=== PATIENT | female | born 2000 | race Caucasian/White ===

== ENCOUNTER 2020-01-17 07:47 | Emergency (ER) | payer OTHER ==
[~2020-01-17] VITALS: Ht 165.1 cm; Wt 59.0 kg
[2020-01-17] MEDS ORDERED: NOHOMEMEDICATIONS (08:08)
[2020-01-17 08:38] LABS: URINE BILIRUBIN NEGATIVE (Negative); URINE BLOOD NEGATIVE (Negative); URINE CLARITY SL CLOUDY; URINE COLOR YELLOW; URINE GLUCOSE-RANDOM* NEGATIVE (Negative); URINE KETONES NEGATIVE (Negative); URINE LEUKOCYTES-REFLEX NEGATIVE (Negative); URINE NITRITE-REFLEX NEGATIVE (Negative); URINE PROTEIN (DIPSTICK) NEGATIVE (Negative); URINE SPECIFIC GRAVITY >= 1.030 (1.005-1.035); URINE UROBILINOGEN 0.2 E.U./dl (0.2-1.0)
[2020-01-17 08:58] LABS: ABSOLUTE NEUTROPHILS 4.4 thou/uL (1.4-8.2); BASOPHILS 0.7 % (0.0-2.0); EOSINOPHILS 3.5 % (0.0-3.0); HEMATOCRIT 40.2 % (37.0-47.0); HEMOGLOBIN 13.7 gm/dL (12.0-15.0); LYMPHOCYTES 27.4 % (24.0-44.0); MCH 32.6 pg (26.0-34.0); MCHC 34.1 g/dL (28.0-37.0); MCV 95.6 fL (80.0-100.0); PLATELET COUNT 168 thou/uL (150-400); POLYS 62.4 % (36.0-66.0); RBC 4.21 mil/uL (4.20-5.00); RDW 12.5 % (10.5-14.5)
[2020-01-17 09:18] LABS: CALCIUM 8.7 mg/dL (8.5-10.1); CREATININE 0.8 mg/dL (0.6-1.0); POTASSIUM 4.1 mmol/L (3.5-5.1)
[2020-01-17 10:40] VITALS: BP 115/75
--- NOTE | 2020-01-20 07:33 | EKG ---
[facility] [place] [address] ELECTROCARDIOGRAM REPORT Name: ROMEO SANCHEZ Room #: DEP [facility]#: [id number] Admission: 01/17/20 Attend Phys: Discharge: 01/17/20 Date of : [birth year] Report #: [id number] THIS REPORT FOR: cc: MIHIR - Marleny family physician/PCP MIHIR - Marleny family physician/PCP Jonathan Joyner MD [facility] THIS REPORT FOR: //name// [facility] ED Test Date: 2020-01-17 Test Time: 08:44:04 Pat Name: ROMEO SANCHEZ Department: Room: Gender: For[employer] Heater: jasmina : 2000 Requested By: Julianna White Order Number: [id number] MD: Jonathan Joyner Measurements Intervals [place] Rate: 60 P: 83 VT: 99 QRS: 81 QRSD: 85 T: 22 QT: 423 QTc: 423 Interpretive Statements Sinus rhythm Short VT interval No previous ECG available for comparison Electronically Signed On 01-20-2020 7:33:02 CDT by Jonathan Joyner [email or web address] <ELECTRONICALLY SIGNED> By: Jonathan Joyner MD, [facility] 01/20/20 0733 3 Jonathan Joyner MD, [facility] /EPI
== END 2020-01-17 10:46 | disposition home or self-care (01) ==
LOC: ER 07:47
PROVIDERS: Emergency Medicine
DX: R55 Syncope and collapse (principal); F17.210 Nicotine dependence, cigarettes, uncomplicated